=== PATIENT | female | born 2000 | race Caucasian/White ===

== ENCOUNTER 2022-01-27 22:35 | Emergency (ER) | payer SELFPAY ==
[~2022-01-27] VITALS: Ht 162.6 cm; Wt 77.1 kg
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
--- NOTE | 2022-01-27 22:57 | NUR ---
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
[2022-01-27] MEDS ORDERED: HYDROCODONE/APAP 5/325MG TABLET PO ONE (23:00)
[2022-01-27] MEDS ORDERED: HYDROCODONE/APAP 5/325MG TABLET ONE (23:02)
--- NOTE | 2022-01-27 23:02 | NUR ---
PT TAKEN TO CT VIA [facility]
--- NOTE | 2022-01-27 23:16 | NUR ---
PT RETURNED FROM CT VIA [facility]
[2022-01-27] MEDS ORDERED: HYDR-4275 PO (23:44)
--- NOTE | 2022-01-28 00:10 | NUR ---
Patient discharged to home in stable condition. Written and verbal after care instructions given. Patient verbalizes understanding of instruction. pt ambulatory with a steady gait
[2022-01-28 01:24] VITALS: BP 120/72
== END 2022-01-28 00:06 | disposition home or self-care (01) ==
LOC: ER 22:40
DX: S16.1XXA Strain of muscle, fascia and tendon at neck level, initial encounter (principal); S20.219A Contusion of unspecified front wall of thorax, initial encounter; S60.812A Abrasion of left wrist, initial encounter; Z60.2 Problems related to living alone; Z79.899 Other long term (current) drug therapy; V89.2XXA Person injured in unspecified motor-vehicle accident, traffic, initial encounter; Y93.89 Activity, other specified; Y92.89 Other specified places as the place of occurrence of the external cause; Y99.8 Other external cause status
CPT/HCPCS: 70450-TC; 71045-TC; 72125-TC